=== PATIENT | male | born 1935 | race Caucasian/White ===

== ENCOUNTER 2019-05-04 18:55 | Inpatient (IN) ==
[2019-05-04] MEDS ORDERED: ONDANSETRON 4 MG/2 ML VIAL IV PRN (21:50)
[2019-05-04] MEDS ORDERED: ACETAMINOPHEN 325 MG TABLET PO PRN (21:50)
[2019-05-04] MEDS ORDERED: dilTIAZem Drip 125 MG/125 ML PREMIX IV SCH (22:00)
[2019-05-04] MEDS ORDERED: ZALEPLON 5 MG CAPSULE PO ONE (22:33)
[2019-05-04] MEDS ORDERED: HEPARIN DRIP 25,000 UNITS/500 ML PREMIX IV SCH (23:00)
[2019-05-05 07:23] LABS: Basophils % 0.2 % (0.0-0.8); Eosinophils % 0.1 % (0.00-10.9); Hematocrit 43.8 VOL% (42.0-52.0); Immature Granulocytes % 0.4 %; Immature Granulocytes Absolute 0.04 #; Lymphocytes # 1.3 10*3/uL (1.4-4.0); Lymphocytes % 14.2 % (21.2-54.2); Mean Corpuscular HGB Conc 34.2 GM/DL (32-36); Mean Corpuscular Volume 90.1 FL (87-102); Mean Platelet Volume 9.6 FL (9.6-12.0); Monocytes % 5.2 % (1.7-12.7); Neutrophils % 79.9 % (38.7-73.9); Platelet Count 179 T/CUMM (130-400); Red Blood Count 4.86 MC/CUMM (3.8-5.5); Red Cell Distribution Width 12.8 % (9.3-17.3); White Blood Count 9.1 T/CUMM (4-12)
[2019-05-05 07:49] LABS: Albumin 3.6 G/DL (3.4-5.0); Bilirubin,Total 1.5 MG/DL (0.2-1.0); Osmolality,Calculated 277.5 MOS/KG (273-304); Risk Ratio 4.26; Total Protein 6.7 G/DL (6.4-8.3); VLDL CHOLESTEROL 22.2 MG/DL
[2019-05-05] MEDS: ASPIRIN EC 81 MG TABLET PO SCH (08:32)
[2019-05-05] MEDS ORDERED: PANTOPRAZOLE 40 MG TABLET PO SCH (09:00)
[2019-05-05] MEDS ORDERED: DILTIAZEM 60 MG TABLET PO SCH (09:00)
[2019-05-05] MEDS ORDERED: POTASSIUM CHLORIDE 20 MEQ TABLET PO ONE ×2 (09:43→16:02)
[2019-05-05] MEDS: DILTIAZEM CD 240 MG CAPSULE PO SCH (10:52)
[2019-05-05] MEDS: APIXABAN 5 MG TABLET PO SCH ×2 (10:53→21:51)
[2019-05-05] MEDS: ASCORBIC ACID 500 MG TABLET PO SCH ×2 (10:53→21:50)
[2019-05-05] MEDS ORDERED: MAGNESIUM SULF RIDER 2 GM in PREMIX 1 EACH IV ONE (16:03)
[2019-05-05] MEDS: POTASSIUM CHLORIDE 20 MEQ TABLET PO SCH (16:56)
[2019-05-05] MEDS ORDERED: ZALEPLON 5 MG CAPSULE PO PRN (21:00)
[2019-05-05] MEDS: PANTOPRAZOLE 40 MG TABLET PO SCH (21:50)
[2019-05-06 04:49] LABS: Calcium 8.9 MG/DL (8.5-10.1); Osmolality,Calculated 278.4 MOS/KG (273-304)
[2019-05-06 07:59] VITALS: BP 131/80
[2019-05-06] MEDS: DILTIAZEM CD 240 MG CAPSULE PO SCH (09:34)
[2019-05-06] MEDS: ASPIRIN EC 81 MG TABLET PO SCH (09:34)
[2019-05-06] MEDS: POTASSIUM CHLORIDE 20 MEQ TABLET PO SCH (09:35)
[2019-05-06] MEDS: PANTOPRAZOLE 40 MG TABLET PO SCH (09:35)
[2019-05-06] MEDS: APIXABAN 5 MG TABLET PO SCH (09:35)
[2019-05-06] MEDS: ASCORBIC ACID 500 MG TABLET PO SCH (09:35)
== END 2019-05-06 15:30 | disposition home or self-care (01) | DRG 310 ==
LOC: N.TELEN
PROVIDERS: ADMIT Internal Medicine; ATTEND Hospitalist

== ENCOUNTER 2020-04-06 14:02 | Observation (INO) ==
[2020-04-06] MEDS ORDERED: ASPIRIN 325 MG TABLET PO STA (16:30)
[2020-04-06 16:56] LABS: Basophils % 0.3 % (0.0-0.8); Hemoglobin 16.8 GM/DL (14.0-18.0); Immature Granulocytes % 0.9 %; Immature Granulocytes Absolute 0.14 #; Lymphocytes # 1.3 10*3/uL (1.4-4.0); Lymphocytes % 8.7 % (21.2-54.2); Mean Corpuscular HGB Conc 34.3 GM/DL (32-36); Mean Corpuscular Volume 93.5 FL (87-102); Mean Platelet Volume 10.1 FL (9.6-12.0); Monocytes % 7.9 % (1.7-12.7); Neutrophils % 82.2 % (38.7-73.9); Platelet Count 136 T/CUMM (130-400); Red Blood Count 5.24 MC/CUMM (3.8-5.5); Red Cell Distribution Width 13.3 % (9.3-17.3); White Blood Count 15.4 T/CUMM (4-12)
[2020-04-06 17:00] LABS: INR 1.2; PT Patient Result 12.6 SECS (9.8-11.9)
[2020-04-06 17:17] LABS: Albumin 3.9 G/DL (3.4-5.0); Bilirubin,Total 1.2 MG/DL (0.2-1.0); Calcium 9.1 MG/DL (8.5-10.1); Osmolality,Calculated 276.8 MOS/KG (273-304); Total Protein 7.7 G/DL (6.4-8.3)
[2020-04-06] MEDS ORDERED: DILTIAZEM 50 MG/10 ML VIAL IV STA (17:44)
[2020-04-06] MEDS ORDERED: DEXTROSE 50% 25 GM/50 ML VIAL IV PRN (18:08)
[2020-04-06] MEDS ORDERED: GLUCAGON 1 MG VIAL IM PRN (18:08)
[2020-04-06] MEDS ORDERED: ONDANSETRON 4 MG/2 ML VIAL IV PRN (18:08)
[2020-04-06] MEDS ORDERED: IPRATROPIUM 0.06% NASAL SPRAY 15 ML BOTTLE BOTH NARES PRN (18:17)
[2020-04-06 18:27] LABS: Apearance,Urine CLEAR (Clear); Bilirubin,Urine Negative (Negative); Blood, Urine Negative (Negative); Glucose,Urine (UA) Negative (Negative); Ketones,Urine Negative (Negative); Nitrite,Urine Negative (Negative); Protein,Urine Negative; RBC,Urine 1 /HPF (0-4); Urine Color Straw (Yellow); Urine Specific Gravity 1.008 (1.001-1.035); Urine Urobilinogen < 2.0 EU/DL (0.2-1.0); WBC,Urine <1 /HPF (0-6)
[2020-04-06] MEDS: traZODone 50 MG TABLET PO SCH (21:36)
[2020-04-06] MEDS: APIXABAN 5 MG TABLET PO SCH (21:36)
[2020-04-07] MEDS ORDERED: ACETAMINOPHEN 325 MG TABLET PO PRN (00:52)
[2020-04-07] MEDS: oxyCODONE/ACETAMINOPHEN 5-325 MG TABLET PO PRN ×4 (01:51→20:55)
[2020-04-07 07:24] LABS: Basophils # 0.1 10*3/uL (0.0-0.2); Basophils % 0.4 % (0.0-0.8); Eosinophils % 0.2 % (0.00-10.9); Hematocrit 50.7 VOL% (42.0-52.0); Hemoglobin 17.1 GM/DL (14.0-18.0); Immature Granulocytes % 0.7 %; Immature Granulocytes Absolute 0.09 #; Lymphocytes # 1.8 10*3/uL (1.4-4.0); Lymphocytes % 14.8 % (21.2-54.2); Mean Corpuscular HGB Conc 33.7 GM/DL (32-36); Mean Corpuscular Volume 95.3 FL (87-102); Mean Platelet Volume 9.7 FL (9.6-12.0); Monocytes % 10.6 % (1.7-12.7); Neutrophils % 73.3 % (38.7-73.9); Platelet Count 133 T/CUMM (130-400); Red Blood Count 5.32 MC/CUMM (3.8-5.5); Red Cell Distribution Width 13.6 % (9.3-17.3); White Blood Count 12.4 T/CUMM (4-12)
[2020-04-07] MEDS ORDERED: DILTIAZEM CD 300 MG CAPSULE PO SCH (09:00)
[2020-04-07 10:03] LABS: Albumin 3.7 G/DL (3.4-5.0); Bilirubin,Total 1.4 MG/DL (0.2-1.0); Calcium 9.3 MG/DL (8.5-10.1); Osmolality,Calculated 272.1 MOS/KG (273-304); Total Protein 8.2 G/DL (6.4-8.3); VLDL CHOLESTEROL 22.8 MG/DL
[2020-04-07] MEDS: PANTOPRAZOLE 40 MG TABLET PO SCH (10:05)
[2020-04-07] MEDS: LOSARTAN 25 MG TABLET PO SCH (10:07)
[2020-04-07] MEDS: MONTELUKAST 10 MG TABLET PO SCH (10:07)
[2020-04-07] MEDS: allopurinoL 300 MG TABLET PO SCH (10:08)
[2020-04-07] MEDS: ASPIRIN EC 81 MG TABLET PO SCH (10:09)
[2020-04-07] MEDS: APIXABAN 5 MG TABLET PO SCH ×2 (10:09→20:55)
[2020-04-07] MEDS ORDERED: DILTIAZEM CD 180 MG CAPSULE PO SCH (11:16)
[2020-04-07] MEDS ORDERED: SODIUM POLYSTYRENE SULFATE 15 GM/60 ML BOTTLE PO STA ×2 (11:49)
[2020-04-07] MEDS ORDERED: DILTIAZEM 60 MG TABLET PO ONE (12:00)
[2020-04-07] MEDS: traZODone 50 MG TABLET PO SCH (20:55)
[2020-04-08 08:49] LABS: Calcium 9.4 MG/DL (8.5-10.1); Osmolality,Calculated 276.7 MOS/KG (273-304)
[2020-04-08] MEDS: APIXABAN 5 MG TABLET PO SCH (08:58)
[2020-04-08] MEDS: MONTELUKAST 10 MG TABLET PO SCH (08:58)
[2020-04-08] MEDS: PANTOPRAZOLE 40 MG TABLET PO SCH (08:59)
[2020-04-08] MEDS: LOSARTAN 25 MG TABLET PO SCH (08:59)
[2020-04-08] MEDS: allopurinoL 300 MG TABLET PO SCH (08:59)
[2020-04-08] MEDS: ASPIRIN EC 81 MG TABLET PO SCH (09:00)
[2020-04-08] MEDS ORDERED: METOPROLOL TARTRATE 5 MG/5 ML VIAL IV ONE ×4 (09:35→09:42)
[2020-04-08 12:05] VITALS: BP 134/91
== END 2020-04-08 12:55 | disposition home or self-care (01) ==
LOC: N.ED 14:02 → N.EDINP 14:02 → N.TELEN 19:55
PROVIDERS: ADMIT Family Medicine; ATTEND Family Medicine